=== PATIENT | male | born 1970 | race Caucasian/White ===

== ENCOUNTER 2018-01-20 11:29 | Emergency (ER) | payer OTHER ==
--- NOTE | 2018-01-20 12:03 | ER Document Report ---
ED Medical Screen (RME) - General Mode of Arrival: Ambulatory Information source: Patient TRAVEL OUTSIDE OF THE [place] IN LAST 30 DAYS: No - General Chief Complaint: Foreign Body in Eye Stated Complaint: RIGHT EYE INJURY Time Seen by Provider: 01/20/18 11:55 Notes: 47 y.o male presents to the ED with a piece of metal in his RT eye since Monday. 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 Pt was sent in by Urgent care. He states that he needs a tetanus vaccination. He states that he cannot see very well out of that eye at all. He denies wearing contacts. He denies any other medical issues or allergies. (ETHAN HOGAN) - Related Data Allergies/Adverse Reactions: No Known Allergies Allergy (Verified 01/20/18 11:58) Past Medical History - General Information source: Patient - Social History Cigarette use (# per day): Yes Chew tobacco use (# tins/day): No Frequency of alcohol use: Occasional Drug Abuse: None Review of Systems - Review of Systems Constitutional: No symptoms reported EENT: See HPI, Other - metal to eye since monday, change in vision. Cardiovascular: No symptoms reported Respiratory: No symptoms reported Gastrointestinal: No symptoms reported Genitourinary: No symptoms reported Male Genitourinary: No symptoms reported Musculoskeletal: No symptoms reported Skin: No symptoms reported Hematologic/Lymphatic: No symptoms reported Neurological/Psychological: No symptoms reported -: Yes All other systems reviewed and negative Physical Exam - Vital signs Vitals: Temp Pulse Resp BP Pulse Ox 98.1 F 76 18 162/96 H 96 01/20/18 11:44 01/20/18 11:44 01/20/18 11:44 01/20/18 11:44 01/20/18 11:44 - Notes Notes: Physical Exam: General: Alert, appears well. HEENT: Normocephalic. PERRLA. Extraocular movements intact. RT conjunctiva is injected. Obvious lesion to RT eye over the pupil, possible surrounding rust ring. Neck: Supple. Respiratory: No respiratory distress. Extremities: Moves all four extremities. Neurological: Normal cognition. AAOx4. Normal speech. Psychological: Normal affect. Normal Mood. Skin: Warm. Dry. Normal color. (ETHAN HOGAN) - Vital Signs Vital signs: Temp Pulse Resp BP Pulse Ox 98.1 F 76 18 162/96 H 96 01/20/18 11:44 01/20/18 11:44 01/20/18 11:44 01/20/18 11:44 01/20/18 11:44 Scribe Documentation - Scribe Written by Yolie:: Yolie Gamble 01/20/18 1203 acting as scribe for :: Ena
[2018-01-20] MEDS ORDERED: DIPH/PERTUSS(ACELL)/TETANUS VAC/PF 0.5 ML SYR (>=10YO) IM ONE (12:12)
[2018-01-20] MEDS ORDERED: ERYTHROMYCIN 0.5% OPH OINT 1 GM UNIT DOSE OD ONE (13:08)
[2018-01-20] MEDS ORDERED: TETRACAINE HCL 0.5% OPH SOLN 2 ML OD ONE (13:08)
--- NOTE | 2018-01-20 13:09 | ER Document Report ---
ED Foreign Body - General Chief Complaint: Foreign Body in Eye Stated Complaint: RIGHT EYE INJURY Time Seen by Provider: 01/20/18 11:55 Mode of Arrival: Ambulatory Notes: 47-year-old male to emergency department for foreign body in the right eye. States he got a foreign body in his eye on Monday. Has not been able to get seen because he has been working. Pain is getting worse. No change in vision. Pain is rated as a 4/10. Went to an urgent care but they were unable to get it removed and sent here for further evaluation. TRAVEL OUTSIDE OF THE [place] IN LAST 30 DAYS: No - Related Data Allergies/Adverse Reactions: No Known Allergies Allergy (Verified 01/20/18 11:58) Past Medical History - General Information source: Patient - Social History Smoking Status: Current Every Day Smoker Cigarette use (# per day): Yes Chew tobacco use (# tins/day): No Frequency of alcohol use: Occasional Drug Abuse: None Lives with: Family Family History: Reviewed & Not Pertinent Patient has suicidal ideation: No Patient has homicidal ideation: No - Medical History Medical History: Negative Renal/ Medical History: Denies: Hx Peritoneal Dialysis Review of Systems - Review of Systems Constitutional: No symptoms reported EENT: See HPI, Eye pain, Tearing. denies: Eye discharge, Blurred vision, Double vision, Ear pain Cardiovascular: No symptoms reported Respiratory: No symptoms reported Skin: No symptoms reported Neurological/Psychological: No symptoms reported Physical Exam - Vital signs Vitals: Temp Pulse Resp BP Pulse Ox 98.1 F 76 18 162/96 H 96 01/20/18 11:44 01/20/18 11:44 01/20/18 11:44 01/20/18 11:44 01/20/18 11:44 Interpretation: Normal - HEENT Head: Normocephalic Eyes: Other - There is a foreign body noted at the central portion of the eye at approximately 2 o'clock position but almost right in the middle of the pupil. To be metallic with prominent restrained. Eyelashes: Normal - Respiratory Respiratory status: No respiratory distress - Neurological Neuro grossly intact: Yes Cognition: Normal Orientation: AAOx4 Sensory: Normal Course - Re-evaluation Re-evalutation: 01/20/18 14:06 consent was obtained the eye was anesthetized on the right with 4 drops of tetracaine. After proper anesthesia was obtained a 22-gauge needle was used to remove layers of embedded metal. After large foreign body was removed I turned my attention to the rust ring. Approximately 15 minutes was needed to gently remove multiple layers of rust. Tetracaine was reapplied and erythromycin ophthalmic ointment was placed in the eye after satisfactory removal of foreign body and rust ring. Patient tolerated procedure well. No complications. Strict warning signs were given with regards to worsening eye symptoms which will require close follow-up. - Vital Signs Vital signs: Temp Pulse Resp BP Pulse Ox 98.1 F 76 18 162/96 H 96 01/20/18 11:44 01/20/18 11:44 01/20/18 11:44 01/20/18 11:44 01/20/18 11:44 Discharge - Discharge Clinical Impression: Foreign body of right eye Qualifiers: Encounter type: initial encounter Qualified Code(s): T15.91XA - Foreign body on external eye, part unspecified, right eye, initial encounter Disposition: HOME, SELF-CARE Instructions: Corneal Foreign Body with Rust ([facility]) Additional Instructions: Please follow-up with an flower grader or parboiler for repeat evaluation as soon as possible. If your eye pain gets worse, pain gets worse, discharge from the eye or any other concerns and you are unable to be seen by an financial retirement plan specialist then please return to emergency department and we will help you find a specialist and reevaluate you. Prescriptions: Erythromycin Base [Erythromycin Oph 1 Gm Oint Ud] 1 applic OD QID 7 Days #1 tube Hydrocodone/Acetaminophen [[place] 5-325 mg Tablet] 1 tab PO TID PRN 3 Days #9 tablet PRN Reason: Pain Scale Of 2 Promethazine HCl [Phenergan 25 mg Tablet] 25 mg PO BID 2 Days #4 tablet Referrals: TIFFANIE ORDONEZ DO [ACTIVE STAFF] - 01/22/18
[2018-01-20] MEDS ORDERED: IBUPROFEN 800 MG TABLET PO ONE (14:13)
[2018-01-20 14:44] VITALS: BP 152/99
== END 2018-01-20 14:40 | disposition home or self-care (01) ==
LOC: ER 11:29
PROC: 08C8XZZ Extirpation of Matter from Right Cornea, External Approach (ICD-10-PCS; principal; 2018-01-20)
PROC: 08C0XZZ Extirpation of Matter from Right Eye, External Approach (ICD-10-PCS; 2018-01-20)
DX: T15.91XA Foreign body on external eye, part unspecified, right eye, initial encounter (principal); F17.210 Nicotine dependence, cigarettes, uncomplicated; X58.XXXA Exposure to other specified factors, initial encounter
CPT/HCPCS: 90715; 99283